=== PATIENT | male | born 1945 | race Caucasian/White ===

== ENCOUNTER 2023-11-27 12:44 | Inpatient (IN) | payer OTHER, MEDICARE ==
[2023-11-27 15:05] LABS: ARTERIAL BLD GAS O2 SATURATION 40.9 % (95-98); ARTERIAL BLOOD GAS BASE EXCESS 3.7 mmol/L (-2-2); ARTERIAL BLOOD GAS pH 7.324 (7.350-7.450)
[2023-11-27 15:06] LABS: ALLENS TEST POSITIVE
[2023-11-27 15:07] LABS: BASO % 0.3 % (0-2.0); EOS % 5.7 % (0-4.5); HEMATOCRIT 39.1 % (35.4-49); HEMOGLOBIN 12.3 GM/dL (11.7-16.9); LYMPH % 2.5 % (8-40); MCH 25.1 pg (25.7-33.7); MCHC 31.5 g/dl (32.0-35.9); MEAN CELL VOLUME 79.5 fl (80-96); MEAN PLT VOLUME 8.1 fl (7.5-11.1); MONO % 5.1 % (3.8-10.2); NEUT % 86.4 % (42.8-82.8); PLATELET COUNT 329 10^3/uL (134-434); RBC 4.91 M/mm3 (4.00-5.60); RDW 24.9 % (11.9-15.9); WHITE BLOOD COUNT 10.7 K/mm3 (4.0-10.0)
[2023-11-27 15:08] LABS: ARTERIAL BLOOD GAS PO2 25.6 mmHg (80-100)
[2023-11-27 15:12] LABS: INR 1.17 (0.83-1.09); PROTHROMBIN TIME (PATIENT) 13.6 SEC (9.7-13.0)
[2023-11-27 15:15] LABS: ACTIVATED PTT 32.5 SECONDS (25.2-36.5)
[2023-11-27 15:26] LABS: CHLORIDE 99 mmol/L (98-107); POTASSIUM 4.3 mmol/L (3.5-5.1); SODIUM 136 mmol/L (136-145)
[2023-11-27 15:28] LABS: ALBUMIN 3.2 g/dl (3.4-5.0); ANION GAP 5 mmol/L (4-13); BLOOD UREA NITROGEN 49.2 mg/dL (7-18); CALCIUM 9.4 mg/dL (8.5-10.1); CO2 32 mmol/L (21-32); GLUCOSE,RANDOM 105 mg/dL (74-106); MAGNESIUM 4.1 mg/dL (1.8-2.4)
[2023-11-27 15:31] LABS: CREATININE 1.6 mg/dL (0.55-1.3); PHOSPHOROUS 2.8 mg/dL (2.5-4.9); SGOT/AST 379 U/L (15-37); SGPT/ALT 467 U/L (13-61)
[2023-11-27 15:33] LABS: BILIRUBIN,TOTAL 0.5 mg/dL (0.2-1); TOT PROT 7.5 g/dl (6.4-8.2)
[2023-11-27 15:37] LABS: ANISOCYTOSIS 2+; MACROCYTOSIS 0
[2023-11-27 15:43] LABS: ALK PHOS > 1000 U/L (45-117)
[2023-11-27 18:05] LABS: EPI CELLS >36 /uL (0-25.1); HYALINE CASTS 6 /uL (0-3.1); URINE APPEARANCE CLOUDY; URINE BACTERIA 11 /uL (0-1359); URINE BILIRUBIN NEGATIVE (NEGATIVE); URINE COLOR ORANGE; URINE GLUCOSE (UA) NEGATIVE (NEGATIVE); URINE KETONE TRACE (NEGATIVE); URINE LEUK ESTERASE 1+ (NEGATIVE); URINE NITRITE NEGATIVE (NEGATIVE); URINE PROTEIN 2+ (NEGATIVE); URINE RBC 14473 /uL (0-23.9); URINE UROBILINOGEN 0.2 mg/dL (0.2-1.0); URINE WBC 116 /uL (0-25.8)
[2023-11-27 18:21] LABS: ARTERIAL BLD GAS O2 SATURATION 99.5 % (95-98); ARTERIAL BLOOD GAS PO2 243.4 mmHg (80-100); ARTERIAL BLOOD GAS pH 7.391 (7.350-7.450)
[2023-11-27 18:22] LABS: ARTERIAL BLOOD GAS BASE EXCESS 4.8 mmol/L (-2-2)
[2023-11-28 03:41] VITALS: BMI 22.4
[2023-11-28 06:50] LABS: BASO % 0.3 % (0-2.0); EOS % 6.7 % (0-4.5); HEMATOCRIT 36.1 % (35.4-49); HEMOGLOBIN 11.4 GM/dL (11.7-16.9); MCH 24.9 pg (25.7-33.7); MCHC 31.6 g/dl (32.0-35.9); MEAN CELL VOLUME 78.8 fl (80-96); MEAN PLT VOLUME 7.9 fl (7.5-11.1); PLATELET COUNT 318 10^3/uL (134-434); RBC 4.58 M/mm3 (4.00-5.60); RDW 24.7 % (11.9-15.9); WHITE BLOOD COUNT 7.7 K/mm3 (4.0-10.0)
[2023-11-28 07:12] LABS: POTASSIUM 4.5 mmol/L (3.5-5.1)
[2023-11-28 07:25] LABS: CREATININE 1.3 mg/dL (0.55-1.3)
[2023-11-28 11:51] LABS: ALBUMIN 2.9 g/dl (3.4-5.0)
[2023-11-28 11:54] LABS: BILIRUBIN,DIRECT 0.1 mg/dL (0.0-0.2)
[2023-11-28 11:55] LABS: BILIRUBIN,TOTAL 0.5 mg/dL (0.2-1)
[2023-11-28] MEDS: NAPROXEN 500 MG TABLET PO ONE (11:56)
[2023-11-28] MEDS: levETIRAcetam 250 MG TABLET PO SCH (15:58)
[2023-11-28] MEDS: AZITHROMYCIN IVPB 500 MG/250 ML BAG IVPB SCH (15:58)
[2023-11-28] MEDS: hydrOXYzine HCL 10 MG/5 ML LIQUID BULK BOTTLE PO SCH (17:29)
[2023-11-29 07:19] LABS: BASO % 0.5 % (0-2.0); EOS % 5.7 % (0-4.5); HEMATOCRIT 34.5 % (35.4-49); HEMOGLOBIN 11.2 GM/dL (11.7-16.9); MCH 25.3 pg (25.7-33.7); MCHC 32.3 g/dl (32.0-35.9); MEAN CELL VOLUME 78.4 fl (80-96); MEAN PLT VOLUME 7.6 fl (7.5-11.1); MONO % 12.1 % (3.8-10.2); NEUT % 73.7 % (42.8-82.8); PLATELET COUNT 299 10^3/uL (134-434); RDW 24.1 % (11.9-15.9)
[2023-11-29 07:38] LABS: POTASSIUM 4.8 mmol/L (3.5-5.1)
[2023-11-29 07:43] LABS: ALBUMIN 2.6 g/dl (3.4-5.0); CALCIUM 8.4 mg/dL (8.5-10.1)
[2023-11-29 07:44] LABS: BILIRUBIN,TOTAL 0.4 mg/dL (0.2-1)
[2023-11-29 07:48] LABS: TOT PROT 6.5 g/dl (6.4-8.2)
[2023-11-29] MEDS: NAPROXEN 500 MG TABLET PO PRN (09:38)
[2023-11-29] MEDS: GABAPENTIN 100 MG CAPSULE PO SCH (15:26)
[2023-11-30 01:06] LABS: FIBROSIS SCORE. 0.53 (0.00-0.21); HCV ALPHA 2 MACRO CHART 225 mg/dL (110-276); NECRO.INFLAM ACT.SCORE 0.93 (0.00-0.17); NECROINFLAM. ACTIVITY GRADE A3-Severe activity (.)
[2023-11-30] MEDS: AZITHROMYCIN IVPB 250 MG in DEXTROSE 5%-WATER - 250 ML IVPB SCH (10:44)
[2023-11-30] MEDS: traMADol HCL 50 MG TABLET PO ONE (20:25)
[2023-11-30] MEDS: POLYETHYLENE GLYCOL (HEALTHYLAX) 3350 17 GM PACKET PO SCH (21:49)
[2023-12-02 08:18] LABS: BASO % 1.1 % (0-2.0); EOS % 7.7 % (0-4.5); HEMATOCRIT 36.1 % (35.4-49); HEMOGLOBIN 11.6 GM/dL (11.7-16.9); LYMPH % 18.3 % (8-40); MCHC 32.1 g/dl (32.0-35.9); MEAN PLT VOLUME 7.5 fl (7.5-11.1); MONO % 15.2 % (3.8-10.2); NEUT % 57.7 % (42.8-82.8); PLATELET COUNT 413 10^3/uL (134-434); RBC 4.63 M/mm3 (4.00-5.60); RDW 24.1 % (11.9-15.9); WHITE BLOOD COUNT 8.7 K/mm3 (4.0-10.0)
[2023-12-02 08:28] LABS: POTASSIUM 4.3 mmol/L (3.5-5.1)
[2023-12-02 08:39] LABS: ALBUMIN 2.8 g/dl (3.4-5.0)
[2023-12-02 08:40] LABS: BLOOD UREA NITROGEN 13.2 mg/dL (7-18)
[2023-12-02 08:41] LABS: CALCIUM 8.9 mg/dL (8.5-10.1)
[2023-12-02 08:45] LABS: CREATININE 0.7 mg/dL (0.55-1.3)
[2023-12-02 08:46] LABS: TOT PROT 6.8 g/dl (6.4-8.2)
[2023-12-02 08:47] LABS: BILIRUBIN,TOTAL 0.4 mg/dL (0.2-1)
[2023-12-02] MEDS ORDERED: ACETAMINOPHEN 1000 MG/100 ML BAG IVPB PRN (09:57)
[2023-12-02] MEDS: ACETAMINOPHEN 1000 MG/100 ML BAG IVPB PRN (10:29)
[2023-12-02 12:03] LABS: ANISOCYTOSIS 3+; MACROCYTOSIS 0; TARGET CELLS 1+
[2023-12-02] MEDS: BISMUTH SUBSALICYLATE 262 MG/15 ML BTL PO ONE (21:06)
[2023-12-02] MEDS: hydrOXYzine HCL 10 MG/5 ML LIQUID BULK BOTTLE PO SCH (21:06)
[2023-12-02] MEDS: GABAPENTIN 100 MG CAPSULE PO SCH (21:08)
[2023-12-03 08:32] LABS: BASO % 0.8 % (0-2.0); EOS % 8.5 % (0-4.5); HEMOGLOBIN 11.1 GM/dL (11.7-16.9); LYMPH % 19.4 % (8-40); MCH 25.6 pg (25.7-33.7); MCHC 32.8 g/dl (32.0-35.9); MEAN PLT VOLUME 7.3 fl (7.5-11.1); MONO % 13.1 % (3.8-10.2); NEUT % 58.2 % (42.8-82.8); PLATELET COUNT 387 10^3/uL (134-434); RBC 4.36 M/mm3 (4.00-5.60); RDW 24.1 % (11.9-15.9)
[2023-12-03 08:48] LABS: POTASSIUM 4.3 mmol/L (3.5-5.1)
[2023-12-03 08:53] LABS: ALBUMIN 2.5 g/dl (3.4-5.0); BLOOD UREA NITROGEN 14.1 mg/dL (7-18); CALCIUM 8.6 mg/dL (8.5-10.1)
[2023-12-03 08:57] LABS: CREATININE 0.8 mg/dL (0.55-1.3)
[2023-12-03 08:58] LABS: BILIRUBIN,TOTAL 0.4 mg/dL (0.2-1); TOT PROT 6.6 g/dl (6.4-8.2)
[2023-12-03] MEDS: GABAPENTIN 300 MG CAPSULE PO SCH (13:35)
[2023-12-03] MEDS: ACETAMINOPHEN 1000 MG/100 ML BAG IVPB PRN (16:29)
[2023-12-04 09:33] LABS: BASO % 0.9 % (0-2.0); HEMATOCRIT 34.4 % (35.4-49); HEMOGLOBIN 11.5 GM/dL (11.7-16.9); LYMPH % 12.4 % (8-40); MCH 26.1 pg (25.7-33.7); MCHC 33.4 g/dl (32.0-35.9); MEAN CELL VOLUME 78.3 fl (80-96); MEAN PLT VOLUME 7.4 fl (7.5-11.1); MONO % 10.5 % (3.8-10.2); NEUT % 70.2 % (42.8-82.8); PLATELET COUNT 402 10^3/uL (134-434); RDW 24.3 % (11.9-15.9); WHITE BLOOD COUNT 9.3 K/mm3 (4.0-10.0)
[2023-12-04 09:55] LABS: POTASSIUM 4.3 mmol/L (3.5-5.1)
[2023-12-04 10:01] LABS: ALBUMIN 2.6 g/dl (3.4-5.0); BLOOD UREA NITROGEN 11.6 mg/dL (7-18)
[2023-12-04 10:04] LABS: CREATININE 0.8 mg/dL (0.55-1.3)
[2023-12-04 10:07] LABS: BILIRUBIN,TOTAL 0.5 mg/dL (0.2-1); TOT PROT 6.9 g/dl (6.4-8.2)
[2023-12-04] MEDS: BISACODYL 5 MG TABLET.DR (FP) PO ONE (16:57)
[2023-12-04] MEDS: PEG 3350/NA SULF BICARB CL/KCL 4000 ML SOLN.RECON PO ONE (19:45)
[2023-12-05] MEDS: MAGNESIUM CITRATE 300 ML BOTTLE PO STA (11:06)
[2023-12-05] MEDS: ACETAMINOPHEN 1000 MG/100 ML BAG IVPB PRN (15:46)
[2023-12-05] MEDS: ACETAMINOPHEN 500 MG TABLET (FP) PO PRN (23:28)
[2023-12-06] MEDS: oxyCODONE HCL 5 MG TABLET PO ONE ×2 (05:06→07:56)
[2023-12-06] MEDS: PANTOPRAZOLE SODIUM 40 MG VIAL IVPUSH SCH (17:06)
[2023-12-06] MEDS: GABAPENTIN 400 MG CAPSULE PO SCH (21:51)
[2023-12-07] MEDS: ACETAMINOPHEN 1000 MG/100 ML BAG IVPB PRN (02:28)
[2023-12-07 08:32] LABS: BASO % 1.2 % (0-2.0); HEMATOCRIT 32.6 % (35.4-49); HEMOGLOBIN 10.7 GM/dL (11.7-16.9); LYMPH % 12.8 % (8-40); MCH 26.1 pg (25.7-33.7); MCHC 32.8 g/dl (32.0-35.9); MEAN CELL VOLUME 79.5 fl (80-96); MEAN PLT VOLUME 7.5 fl (7.5-11.1); MONO % 10.5 % (3.8-10.2); NEUT % 72.5 % (42.8-82.8); PLATELET COUNT 372 10^3/uL (134-434); RDW 23.4 % (11.9-15.9); WHITE BLOOD COUNT 9.6 K/mm3 (4.0-10.0)
[2023-12-07 08:36] LABS: POTASSIUM 3.8 mmol/L (3.5-5.1)
[2023-12-07 08:41] LABS: CALCIUM 8.8 mg/dL (8.5-10.1)
[2023-12-07 08:42] LABS: ALBUMIN 2.5 g/dl (3.4-5.0); BLOOD UREA NITROGEN 10.5 mg/dL (7-18)
[2023-12-07 08:45] LABS: CREATININE 0.7 mg/dL (0.55-1.3)
[2023-12-07 08:46] LABS: TOT PROT 6.8 g/dl (6.4-8.2)
[2023-12-07 08:47] LABS: BILIRUBIN,TOTAL 0.4 mg/dL (0.2-1)
[2023-12-07 09:48] LABS: ANISOCYTOSIS 1+; MACROCYTOSIS 1+
[2023-12-07 19:32] LABS: EPI CELLS 6 /uL (0-25.1); HYALINE CASTS 1 /uL (0-3.1); PH,URINE 6.5 (5.0-8.0); URINE APPEARANCE CLEAR; URINE BACTERIA 1 /uL (0-1359); URINE BILIRUBIN NEGATIVE (NEGATIVE); URINE COLOR YELLOW; URINE GLUCOSE (UA) NEGATIVE (NEGATIVE); URINE KETONE NEGATIVE (NEGATIVE); URINE LEUK ESTERASE NEGATIVE (NEGATIVE); URINE NITRITE NEGATIVE (NEGATIVE); URINE PROTEIN NEGATIVE (NEGATIVE); URINE RBC 485 /uL (0-23.9); URINE UROBILINOGEN 0.2 mg/dL (0.2-1.0); URINE WBC 15 /uL (0-25.8)
[2023-12-08 09:57] LABS: EOS % 2.8 % (0-4.5); HEMATOCRIT 37.7 % (35.4-49); LYMPH % 13.7 % (8-40); MCH 25.5 pg (25.7-33.7); MCHC 31.8 g/dl (32.0-35.9); MEAN CELL VOLUME 80.4 fl (80-96); MEAN PLT VOLUME 7.7 fl (7.5-11.1); MONO % 9.3 % (3.8-10.2); NEUT % 73.2 % (42.8-82.8); PLATELET COUNT 432 10^3/uL (134-434); RBC 4.69 M/mm3 (4.00-5.60); RDW 23.4 % (11.9-15.9); WHITE BLOOD COUNT 9.8 K/mm3 (4.0-10.0)
[2023-12-08] MEDS: ACETAMINOPHEN 1000 MG/100 ML BAG IVPB ONE (10:09)
[2023-12-08 10:18] LABS: POTASSIUM 4.1 mmol/L (3.5-5.1)
[2023-12-08 10:28] LABS: ALBUMIN 2.8 g/dl (3.4-5.0); CALCIUM 9.5 mg/dL (8.5-10.1)
[2023-12-08 10:29] LABS: BLOOD UREA NITROGEN 11.1 mg/dL (7-18)
[2023-12-08 10:31] LABS: CREATININE 0.7 mg/dL (0.55-1.3)
[2023-12-08 10:32] LABS: BILIRUBIN,TOTAL 0.4 mg/dL (0.2-1); TOT PROT 7.6 g/dl (6.4-8.2)
[2023-12-08] MEDS: ACETAMINOPHEN 1000 MG/100 ML BAG IVPB PRN (15:29)
[2023-12-09] MEDS: PANTOPRAZOLE 40 MG TABLET PO SCH (09:57)
[2023-12-09] MEDS: LIDOCAINE 4% PATCH TP SCH (10:00)
[2023-12-09] MEDS: ACETAMINOPHEN 1000 MG/100 ML BAG IVPB PRN (11:55)
[2023-12-09] MEDS: LIDOCAINE PATCH REMOVAL MC SCH (22:10)
[2023-12-11] MEDS: METHYL SALICYLATE/MENTHOL OINT 30 GM TUBE TP SCH (18:46)
[2023-12-12] MEDS: oxyCODONE HCL 5 MG TABLET PO ONE ×2 (16:59→20:59)
[2023-12-12] MEDS: ACETAMINOPHEN 325 MG TABLET (FP) PO ONE (17:02)
[2023-12-13 06:11] VITALS: RESP 18
[2023-12-13 08:47] VITALS: BP 123/75; PULSE 90; TEMP 98.5
== END 2023-12-13 14:09 | disposition home or self-care (01) | DRG 683 ==
LOC: JER 12:44 → JERBED 23:07 → J4W 11-28 03:16 → OBSVTOIN 11-29 14:02 → J4W 12-01 19:50 → J5S 12-02 18:47
PROVIDERS: ADMIT Internal Medicine; ATTEND Internal Medicine
PROC: 0W3P8ZZ Control Bleeding in Gastrointestinal Tract, Via Natural or Artificial Opening Endoscopic (ICD-10-PCS; 2023-12-05)
PROC: 0DBN8ZX Excision of Sigmoid Colon, Via Natural or Artificial Opening Endoscopic, Diagnostic (ICD-10-PCS; principal; 2023-12-05 12:30)
PROC: 0BBJ3ZX Excision of Left Lower Lung Lobe, Percutaneous Approach, Diagnostic (ICD-10-PCS; 2023-12-12)
DX: N17.9 Acute kidney failure, unspecified (principal); C34.32 Malignant neoplasm of lower lobe, left bronchus or lung; I42.9 Cardiomyopathy, unspecified; K62.5 Hemorrhage of anus and rectum; S36.118A Other injury of liver, initial encounter; R94.5 Abnormal results of liver function studies; E04.1 Nontoxic single thyroid nodule; R91.1 Solitary pulmonary nodule; M54.2 Cervicalgia; T36.8X5A Adverse effect of other systemic antibiotics, initial encounter; X58.XXXA Exposure to other specified factors, initial encounter; Y93.9 Activity, unspecified; Y92.9 Unspecified place or not applicable; R29.6 Repeated falls; J44.9 Chronic obstructive pulmonary disease, unspecified; K63.5 Polyp of colon; R33.9 Retention of urine, unspecified; K57.30 Diverticulosis of large intestine without perforation or abscess without bleeding; K64.8 Other hemorrhoids; R91.8 Other nonspecific abnormal finding of lung field; N31.9 Neuromuscular dysfunction of bladder, unspecified; D50.9 Iron deficiency anemia, unspecified
CPT/HCPCS: 0241U-QW; 32408; 36415; 36600; 70450-TC; 71045-TC-FY; 71250-TC; 72100-TC-FY; 72125-TC; 72170-TC-FY; 74176-TC; 74177-TC; 76705-TC; 77012-TC; 80048; 80053; 80061; 80076; 80177; 80307; 81003; 82172; 82375; 82378; 82550; 82728; 82803; 82962; 82977; 83010; 83050; 83516; 83540; 83550; 83735; 83883; 84100; 84153; 84460; 84484; 85025; 85610; 85730; 86038; 86704; 86705; 86708; 86803; 86850; 86900; 86901; 87086; 87340; 87350; 87517; 88305-TC; 88341-TC; 93005; 93010; 93306-TC; 93880-TC; 97116-GP; 97162-GP; 99285-25; G0378; J0131; Q9967